=== PATIENT | female | born 1960 ===

== ENCOUNTER 2018-12-31 07:59 | Day surgery (SDC) | payer OTHER ==
[2016-05-19 09:56] VITALS: BMI 29.1
[2018-12-31] MEDS ORDERED: Lactated Ringer's 500 ML IV ONE (08:25)
[2018-12-31] MEDS ORDERED: Propofol 10 mg/ml Inj (20 ML) ONE (09:24)
[2018-12-31 09:47] VITALS: O2SAT 99
[2018-12-31 10:05] VITALS: BP 101/66; PULSE 65; RESP 16; TEMP 97
== END 2018-12-31 11:30 | disposition home or self-care (01) ==
LOC: H.ENDO 07:59
PROVIDERS: ATTEND Internal Medicine Gastroenterology
DX: K30 Functional dyspepsia (principal); J45.909 Unspecified asthma, uncomplicated; E11.9 Type 2 diabetes mellitus without complications; E78.5 Hyperlipidemia, unspecified; I10 Essential (primary) hypertension; K21.9 Gastro-esophageal reflux disease without esophagitis; K31.89 Other diseases of stomach and duodenum
CPT/HCPCS: 43239; 82948; 88305; J2001; J2704; J7120